=== PATIENT | male | born 1980 | race Caucasian/White ===

== ENCOUNTER 2017-11-10 11:56 | Outpatient (CLI) | payer OTHER ==
[2015-11-26 03:01] VITALS: BP 134/74
[~2017-11-10 11:56] MED LIST: BUPIVACAINE HCL/PF 2.5 MG/ML 10ML VIAL IV ONE; Lidocaine 1% 5ml(IM or SUTURE)(PAIN CLINIC) ONE; TRIAMCINOLONE ACETONID 40MG/ML VIAL ONE
--- NOTE | 2017-11-13 15:32 | LUMBAR TFESI ---
SUBJECTIVE: I had the opportunity of following up with Indra Ann today as an outpatient at [facility]. This is a delightful 37-year- old white male who I treated 2 years ago for left lower extremity radiculitis and sciatica. He got significant improvement in his leg pain with transforaminal injection. I did send him to Dr. Randoplh for a surgical opinion. There is no surgery recommended at that time. He has not had a new MRI but now reports a greater than 6 months recurrence of left-sided leg pain that has been markedly limited at L5 dermatomal distribution. He has not had any further recent imaging and at this point, I have recommended that we repeat an L5 transforaminal injection and have him follow up with me next month. I will order a new MRI study to see if he has had any further progression of spinal or neuroforaminal narrowing. Plan today for a left L5 transforaminal injection under fluoroscopic guidance. PROCEDURE: Left lumbar transforaminal epidural steroid injection with fluoroscopic guidance. DESCRIPTION OF PROCEDURE: The risks and benefits were discussed with the patient including the risks of infection, bleeding, nerve injury, and headache, as well as the risks of steroid exposure causing hyperglycemia, hypertension, osteoporosis, or increased infectious risk. The patient understood these risks and agreed to proceed. Consent was obtained. The patient was placed in the prone position on the fluoroscopy table with a pillow underneath the abdomen to afford anterior flexion of the lumbar spine. The low back was cleaned and a sterile drape was applied. AP, lateral and oblique fluoroscopic views were obtained identifying the L5 vertebral body and L5 transverse process. An oblique view of the transverse process and pedicles was obtained. A 23-gauge Quincke tip 3.5 spinal needle was advanced under direct-beam (barrel view) fluoroscopic guidance until the tip contacted the superior-most aspect of the left S1 superior articulating process. The needle was then directed superiorly and medially a few millimeters towards the intervertebral foramen. A lateral fluoroscopic view was obtained and the needle was advanced into the inferior/anterior aspect of the L5 neural foramen (L5-S1 intervertebral foramen) epidural space. It was verified that there was no aspiration of CSF or blood. Omnipaque 240 myelogram dye was injected through the needle. The dye was noted to course in the desired distribution within the lumbar foramen epidural space. The medication was injected into the epidural space. The stylet was replaced in the needle and the needle was removed from the back. The patient tolerated the procedure well. The back was cleaned and a bandage was applied over the injection site. The patient was monitored for 20 minutes following the procedure. During this time the vital signs remained stable and the patient experienced no adverse sequelae. The patient was discharged home in good condition. ASSESSMENT: 1. Lumbar radicular pain. 2. Lumbar radiculitis/neuritis. PLAN: Left lumbar transforaminal epidural steroid injection. FOLLOWUP: Return to clinic if problems develop or worsen. cc: Dr. Kapil DEL ROSARIO
== END 2017-11-10 11:58 ==
LOC: OUT 11:56
PROVIDERS: ATTEND Anesthesiology Pain Medicine
DX: M54.16 Radiculopathy, lumbar region (principal)
CPT/HCPCS: J3301; J3490; Q9966; 64483; 99213

== ENCOUNTER 2017-11-12 17:41 | Emergency (ER) | payer OTHER ==
[2017-11-12 17:58] VITALS: BP 157/89
--- NOTE | 2017-11-12 18:16 | ED Physician Documentation ---
Low Back Pain - HISTORIAN Historian: patient - HPI Stated Complaint: back pain Chief Complaint: Low Back Pain/ Injury Additional Information: This is a 37 year old male who was seen last week by Sneha Patel in the clinic, and referred to Dr. Delvalle. He has a history of herniated lumbar disks/ neural foraminal stenosis and has had epidural steroid injections by Dr Delvalle in 2016. He has actually done well in the interim. History: history of chronic pain:, back pain Onset: other (wweeks) Duration: continues in ED Recent Injury: No Context: other (NA) Where: work Other Injuries: denies: neck, head Severity: severe Quality: burning (and radiating to left quadriceps) Associated Symptoms: denies: fever, chills Worsened By:: cough, deep breaths, other (position) Relieved By: other (position) Further Comments: no - ROS CONST: no problems CVS/RESP: denies: chest pain EYES/ENT: denies: problems with vision MS/SKIN/LYMPH: denies: none Neuro/Psych: denies: none GI/: denies: abdominal pain - PAST HX Past History: back pain, sciatica Other History: denies: aortic aneurysm, CAD Surgeries/Procedures: denies: none Immunizations: UTD Allergies/Adverse Reactions: Allergies Allergy/AdvReac Type Severity Reaction Status Date / Time No Known Drug Allergies Allergy Verified 11/12/17 17:58 Home Medications: Ambulatory Orders Medication Instructions Recorded oxyCODONE HCL/ACETAMINOPHEN 1 tab PO PRN PRN 11/12/17 [Percocet 5/325] - SOCIAL HX Smoking History: non-smoker Alcohol Use: none Drug Use: none - FAMILY HX Family History: no significant history - VITAL SIGNS Vital Signs: Vital Signs Temp Pulse Resp BP Pulse Ox 98.5 F 68 19 157/89 98 11/12/17 17:45 11/12/17 17:45 11/12/17 17:45 11/12/17 17:45 11/12/17 17:45 ED Results Lab/Radiology - Orders Orders: ED Orders Category Date Time Status methylPREDNISolone ACETATE [Depo-Medrol] Med 11/12/17 18:11 Discontinued 80 mg IM NOW ONE methylPREDNISolone SOD SUCC [Solu-MEDROL] Med 11/12/17 18:08 Discontinued 80 mg .ROUTE .STK-MED ONE Low Back Pain/Injury - Physical Exam General Appearance: moderate distress EENT: eye inspection normal Neck: non-tender Resp/CVS: chest non-tender Abdomen: non-tender Back: CVA tenderness, muscle spasm, other Rectal/Genital: other (def) Straight Leg Raising: Negative Right, Positive Left Neuro/Psych: oriented x3 Skin: warm/dry Extremities: other (decreased sensation in web space between the left great and second toes) Discharge Clincal Impression: Neural foraminal stenosis of lumbar spine Referrals: Ramya Becker MD [Primary Care Provider] - 2 Days Condition: Fair Disposition: HOME, SELF-CARE Decision to Admit: NO Date of Decison to Admit: 11/12/17 (Sent with Rx for percocet 5-325 1 po TID prn back pain, keep appt for MRI, f/u with DR. Delvalle as scheduled. Depomedrol 80mg given in ER, prednisone taper is ordered) Decision Time: 18:20
[2017-11-12] MEDS: methylPREDNISolone SOD SUCC 40 MG/ML VIAL ONE (18:30)
[2017-11-12] MEDS: methylPREDNISolone ACETATE 80 MG/ML VIAL IM ONE (18:30)
== END 2017-11-12 18:25 | disposition home or self-care (01) ==
LOC: ED 17:41
DX: M48.062 Spinal stenosis, lumbar region with neurogenic claudication (principal)
CPT/HCPCS: 96372; 99282; J1040

== ENCOUNTER 2017-11-16 07:53 | Emergency (ER) | payer OTHER ==
[2017-11-16] MEDS: ORPHENADRINE CITRATE 60 MG/2ML ONE (08:20)
[2017-11-16] MEDS: KETOROLAC TROMETHAMINE 60 MG/2 ML VIAL IM ONE (08:20)
[2017-11-16] MEDS: ORPHENADRINE CITRATE 60 MG/2ML IM ONE (08:20)
--- NOTE | 2017-11-16 08:20 | ED Physician Documentation ---
Low Back Pain - HISTORIAN Historian: patient - HPI Stated Complaint: low back pain Chief Complaint: Low Back Pain/ Injury Additional Information: 37 yo male presents with continued low back pain, radiating into left leg. Reports history of this same pain 2 years ago. Has seen pain management 6 days ago who did an epidural steroid injection. Was in ER 4 days ago for same c/o and given Percocet and Prednisone taper. Reports no relief. Has MRI ordered and awaiting scheduling for this. Has appt with pain management in 3 weeks History: back pain Onset: days ago (8) Recent Injury: No - ROS CONST: no problems - PAST HX Past History: back pain Allergies/Adverse Reactions: Allergies Allergy/AdvReac Type Severity Reaction Status Date / Time No Known Drug Allergies Allergy Verified 11/16/17 08:22 Home Medications: Ambulatory Orders Medication Instructions Recorded oxyCODONE HCL/ACETAMINOPHEN 1 tab PO PRN PRN 11/12/17 [Percocet 5/325] - SOCIAL HX Smoking History: non-smoker - FAMILY HX Family History: none - VITAL SIGNS Vital Signs: Vital Signs Temp Pulse Resp BP Pulse Ox 157/89 11/12/17 18:25 Progress - Results/Orders Results/Orders: Pt given Norflex 60mg IM and Toradol 60mg IM in ER with mild relief. Pt needs to keep his MRI appt. He certainly could benefit from physical therapy and soft tissue massage as he says this tends to help ED Results Lab/Radiology - Orders Orders: ED Orders Category Date Time Status Ketorolac Tromethamine [Toradol] Med 11/16/17 08:08 Discontinued 60 mg .ROUTE .STK-MED ONE Ketorolac Tromethamine [Toradol] Med 11/16/17 08:07 Discontinued 60 mg IM NOW ONE Orphenadrine Citrate [Norflex] Med 11/16/17 08:08 Discontinued 60 mg .ROUTE .STK-MED ONE Orphenadrine Citrate [Norflex] Med 11/16/17 08:07 Discontinued 60 mg IM NOW ONE Low Back Pain/Injury - Physical Exam General Appearance: no acute distress EENT: eye inspection normal, ENT inspection normal, pharynx normal, SHARATH Neck: non-tender, painless ROM Resp/CVS: chest non-tender, breath sounds nml Abdomen: non-tender Back: other (tenderness along left paraspinal musculature; no vertebral tenderness) Straight Leg Raising: Positive Left Neuro/Psych: oriented x3, motor nml, sensation nml Extremities: non-tender Discharge Clincal Impression: Lumbar back pain with radiculopathy affecting left lower extremity Referrals: Sneha Patel PA [Primary Care Provider] - 2 Days Condition: Good Disposition: 01 HOME, SELF-CARE Decision to Admit: NO Decision Time: 08:24
[2017-11-16] MEDS: KETOROLAC TROMETHAMINE 60 MG/2 ML VIAL ONE (08:21)
[2017-11-16 08:33] VITALS: BP 137/84
== END 2017-11-16 08:31 | disposition home or self-care (01) ==
LOC: ED 07:53
DX: M54.16 Radiculopathy, lumbar region (principal)
CPT/HCPCS: 96372; 99282; J1885; J2360

== ENCOUNTER 2018-09-25 13:53 | Emergency (ER) | payer OTHER ==
--- NOTE | 2018-09-25 14:10 | ED Physician Documentation ---
Upper Respiratory Symptoms - HISTORIAN Historian: patient - HPI Stated Complaint: congestion/chills Chief Complaint: Upper Respiratory Symptoms Additional Information: Patient presents to ED with a 24 hour history of nasal congestion, headache, bodyaches and chills. He states his nephew was diagnosed with influenza 3 days ago. Onset: hours (24) Duration: constant Context: denies: recent foreign travel Associated Symptoms: chills, runny nose, headache Worsened by Deep Breath: No Further Comments: no - ROS CONST/EYES: eye redness CVS/RESP: chest pain LYMPH: denies: leg swelling, rash GI/: denies: vomiting, nausea, diarrhea NEURO/PSYCH: denies: dizziness MS/SKIN: muscle aches - PAST HX Lung Disease: none PE Risk Factors: none Surgeries/Procedures: none Allergies/Adverse Reactions: Allergies Allergy/AdvReac Type Severity Reaction Status Date / Time crab Allergy Verified 09/25/18 14:23 No Known Drug Allergies Allergy Verified 11/16/17 08:22 Home Medications: Ambulatory Orders Medication Instructions Recorded oxyCODONE HCL/ACETAMINOPHEN 1 tab PO PRN PRN 11/12/17 [Percocet 5/325] - SOCIAL HX Smoking History: non-smoker Alcohol Use: none Drug Use: none - FAMILY HX Family History: none - VITAL SIGNS Vital Signs: Vital Signs Temp Pulse Resp BP Pulse Ox 137/84 11/16/17 08:31 - REVIEWED ASSESSMENTS Nursing Assessment Reviewed: Yes Vitals Reviewed: Yes ED Results Lab/Radiology - Lab Results Lab Results: Influenza swab - negative. - Orders Orders: ED Orders Category Date Time Status INFLUENZA A&B Stat Lab 09/25/18 Uncollected Upper Respiratory Symptoms - EXAM General Appearance: no acute distress, alert EENT: nml ENT inspection, pain over sinuses, maxillary. No: pharyngeal erythema Neck: supple Respiratory: no resp. distress, breath sounds nml Abdomen: non-tender, nml bowel sounds, no distention CVS: reg rate & rhythm, heart sounds normal Skin: color nml, no rash Extremities: non-tender, normal range of motion Neuro/Psych: oriented x3, neuro intact Discharge Clincal Impression: Viral upper respiratory illness Referrals: Sneha Patel PA [Primary Care Provider] - 2 Days Additional Instructions: 1. Drink plenty of fluids 2. Tylenol and/or Ibuprofen as need for pain/fever. Be aware some over the counter cold medications contain Tylenol 3. Follow up with PCP within 1 week. Condition: Stable Disposition: 01 HOME, SELF-CARE Decision to Admit: NO Date of Decison to Admit: 09/25/18 Decision Time: 14:43
[2018-09-25 14:21] VITALS: BP 124/73
== END 2018-09-25 15:00 | disposition home or self-care (01) ==
LOC: ED 13:53
DX: J06.9 Acute upper respiratory infection, unspecified (principal)
CPT/HCPCS: 87400; 99282; 99283

== ENCOUNTER 2018-10-29 14:58 | Outpatient (CLI) | payer OTHER ==
--- NOTE | 2018-10-30 00:08 | Diagnostic Imaging Report ---
ZENA THORNTON [facility] [id number] [facility] [address] [address] Report Submission Date: Oct 29, 2018 8:06:39 PM [employer] Patient Study Name: TIFFANIE DUMONT Date: Oct 29, 2018 2:53:37 PM [employer] Modality Type: DX Gender: M Description: LOWER EXTREMITY : 76 Institution: [facility] Physician: ZENA THORNTON Examination: Plain film ankles History: Bilateral chronic ankle pain with exertion, pt states chronic pain post back surgery in the last year (Hx) Findings: 3 views of the right and left ankle demonstrates normal cortical margins. No fracture or dislocation. Talar dome is intact. Right ankle suggests some articular subchondral cysts. Left calcaneal No soft tissue swelling. No joint effusion. Impression: No acute appearing cortical abnormality. If discomfort persist, consider obtaining MRI to further evaluate. Electronically signed on Oct 29, 2018 8:06:39 PM [employer] by: Mau DEL ROSARIO
== END 2018-10-29 15:08 ==
LOC: RAD 14:58
PROVIDERS: ATTEND Family Medicine
DX: M25.571 Pain in right ankle and joints of right foot (principal); M25.572 Pain in left ankle and joints of left foot; G89.29 Other chronic pain

== ENCOUNTER 2019-03-05 11:55 | Emergency (ER) | payer OTHER ==
--- NOTE | 2019-03-05 12:02 | ED Physician Documentation ---
General Adult - HISTORIAN Historian: patient (He states he noticed a rash two days ago on his arms. He denies any increas in rash however it is not getting any improvment in the rash either. He states he has not noted any new exposures. He did look at this throat and noted it was red so he was worried ) - HPI Stated Complaint: rash Chief Complaint: Allergies Further Comments: yes (states two days ago he noted a few raised areas on his arms. Today he was noting more itching and the areas were not going away as well as when he looked at his throat it looked red. He has no shortness of air. He took benadryl last night but none today) - ROS CONST: no problems - PAST HX Past History: none Allergies/Adverse Reactions: Allergies Allergy/AdvReac Type Severity Reaction Status Date / Time crab Allergy Verified 03/05/19 12:08 No Known Drug Allergies Allergy Verified 03/05/19 12:08 - SOCIAL HX Smoking History: cigarettes Alcohol Use: none Drug Use: none - FAMILY HX Family History: No - VITAL SIGNS Vital Signs: Vital Signs Temp Pulse Resp BP Pulse Ox 124/73 09/25/18 15:00 - REVIEWED ASSESSMENTS Nursing Assessment Reviewed: Yes Vitals Reviewed: Yes General Adult Physical Exam - PHYSICAL EXAM GENERAL APPEARANCE: no distress EENT: eye inspection normal, pharynx normal, no signs of dehydration NECK: normal inspection RESPIRATORY: no resp distress, chest non-tender, breath sounds normal CVS: reg rate & rhythm ABDOMEN: soft, normal bowel sounds, no distension BACK: normal inspection SKIN: warm/dry, other (several small areas on bilateral arms. No other rash noted. ) EXTREMITIES: non-tender NEURO: oriented X3 Discharge Clincal Impression: Rash and nonspecific skin eruption Referrals: Kapil Samson MD [Primary Care Provider] - 2 Days Comments: 1. Claritin 10 mg take 1 by mouth daily 2. Zantac 150 mg take 1 by mouth twice daily 3. Medrol dose pack take as directed start 03.06.19 at noon 4. follow up with PCP in 2 days 5. Return to ER for any increasing concerns Condition: Stable Disposition: 01 HOME, SELF-CARE Decision to Admit: NO Date of Decison to Admit: 03/05/19 Decision Time: 12:17
[2019-03-05] MEDS ORDERED: methylPREDNISolone SOD SUCC 125 MG/2 ML VIAL IM ONE (12:09)
[2019-03-05 12:26] VITALS: BP 134/90
== END 2019-03-05 12:21 | disposition home or self-care (01) ==
LOC: ED 11:55
DX: R21 Rash and other nonspecific skin eruption (principal)
CPT/HCPCS: 96372; 99283; J2930